=== PATIENT | female | born 1985 | race Caucasian/White ===

== ENCOUNTER → 2017-05-03 | Emergency (ER) | payer OTHER ==
[~2017-05-03] VITALS: Ht 160 cm; Wt 68.0 kg
== END ==
LOC: ED 17:21
DX: R10.10 Upper abdominal pain, unspecified (principal); R10.812 Left upper quadrant abdominal tenderness; R10.816 Epigastric abdominal tenderness; Z98.51 Tubal ligation status
CPT/HCPCS: 80053; 81001; 83690; 84703; 85025; 99283

== ENCOUNTER 2020-08-19 20:10 | Emergency (ER) | payer BC ==
[~2020-08-19] VITALS: Ht 160 cm; Wt 79.4 kg
[2020-08-19] MEDS ORDERED: PROTONIX40 MG PO (22:08)
--- NOTE | 2020-08-20 07:29 | EKG ---
[facility] [address] [facility] [place], [place] [address] Signed Normal sinus rhythm Cannot rule out Anterior infarct , age undetermined Abnormal ECG No previous ECGs available Confirmed by NANCY MCGILL MD ([id number] on 08/20/2020 7:29:35 AM Electronically Signed By: NANCY MCGILL MD 08/20/20 0729 PATIENT NAME: CORDELL CARROLLVETO NUGENT Electrocardiogram DATE OF : 87 PHYSICIAN: NANCY MCGILL MD REPORT #: [id number] REPORT IS CONFIDENTIAL AND NOT TO BE RELEASED WITHOUT AUTHORIZATION
== END 2020-08-19 22:19 | disposition home or self-care (01) ==
LOC: ED 20:10
DX: R07.89 Other chest pain (principal)
CPT/HCPCS: 71046; 84484; 85379; 93005; 93010; 99285-25

== ENCOUNTER 2022-06-12 16:08 | Emergency (ER) | payer BC ==
[~2022-06-12] VITALS: Ht 160 cm; Wt 79.4 kg
[~2022-06-12 16:08] MED LIST: PROTONIX40 MG PO
[2022-06-12] MEDS ORDERED: CYCLOBENZAPRINE10 MG PO (19:07)
== END 2022-06-12 19:34 | disposition home or self-care (01) ==
LOC: ED 16:08
DX: M54.41 Lumbago with sciatica, right side (principal)
CPT/HCPCS: 99283